=== PATIENT | female | born 1975 | race Caucasian/White ===

== ENCOUNTER 2017-10-08 21:51 | Emergency (ER) | payer OTHER ==
[~2017-10-08] VITALS: Ht 162.6 cm; Wt 81.3 kg
[~2017-10-08 21:51] MED LIST: HYDR-2768 PO
[2017-10-08 22:00] VITALS: BP 161/96; PULSE 101; RESP 16; TEMP 98; O2SAT 98
[2017-10-08] MEDS ORDERED: HYDR25TA5 PO (22:17)
[2017-10-08] MEDS ORDERED: OMEP20TA93 PO (22:17)
[2017-10-08] MEDS ORDERED: CEPH-460 PO (22:50)
--- NOTE | 2017-10-08 22:50 | PD ---
HPI Chief Complaint: Laceration/Skin Injury Time Seen by Provider: 22:44 Travel History International Travel<30 days: No Contact w/Intl Traveler<30days: No Traveled to known affect area: No History of Present Illness HPI Patient presents with complaints of laceration to the distal aspect of her left first finger. States she was shopping some trash into a trash can when she felt something sharp cut into her left first finger. Tetanus up-to-date. Denies . Occurred approximate 30 minutes prior to arrival. Pressure dressing was applied and bleeding is currently controlled. PFSH Past Medical History Cancer: No Cardiovascular Problems: No Diabetes: No Endocrine: No Gastrointestinal Disorders: Yes (GERD, ABD. PAIN/ BLOATING, N&V) GERD: Yes Genitourinary: No Hepatitis: No Hiatal Hernia: No Hypertension: Yes Immune Disorder: No Musculoskeletal: Yes (ARTHRITIS) Neurologic: No Psychiatric: No Reproductive: No Respiratory: No Thyroid Disease: No Tetanus Vaccination: < 5 Years Influenza Vaccination: No ?: Unknown Dilation and Curettage (D&C): Yes Past Surgical History AICD: No Cholecystectomy: Yes Gynecologic Surgery: Yes (D&C X4, LAPAROSCOPY) Joint Replacement: No Pacemaker: No Other Surgery: Yes Social History Alcohol Use: Yes (OCC) Tobacco Use: No (VAPES) Substance Use: No Allergies-Medications (Allergen,Severity, Reaction): Coded Allergies: codeine (Unverified Allergy, Severe, MIGRAINE, VOMITING, HIVES, 01/05/17) gluten (Unverified Adverse Reaction, Unknown, SWELLING FEET, 01/05/17) Reported Meds & Prescriptions Reported Meds & Active Scripts Active Reported Omeprazole 20 Mg Tab 20 Mg PO DAILY Hydrochlorothiazide 25 Mg Tab 25 Mg PO DAILY Review of Systems General / Constitutional: No: Fever Eyes: No: Visual changes HENT: No: Headaches Cardiovascular: No: Chest Pain or Discomfort Respiratory: No: Shortness of Breath Gastrointestinal: No: Abdominal Pain Genitourinary: No: Dysuria Musculoskeletal: No: Pain Skin: Positive Other (Finger laceration), No Rash Neurologic: No: Weakness Psychiatric: No: Depression Endocrine: No: Polydipsia Hematologic/Lymphatic: No: Easy Bruising Physical Exam Narrative GENERAL: Well-nourished, well-developed patient. SKIN: Focused skin assessment warm/dry. HEAD: Normocephalic. EYES: No scleral icterus. No injection or drainage. NECK: Supple, trachea midline. No JVD or lymphadenopathy. CARDIOVASCULAR: Regular rate and rhythm without murmurs, gallops, or rubs. RESPIRATORY: Breath sounds equal bilaterally. No accessory muscle use. GASTROINTESTINAL: Abdomen soft, non-tender, nondistended. MUSCULOSKELETAL: No cyanosis, or edema. BACK: Nontender without obvious deformity. No CVA tenderness. Examination of the left first finger distal aspect reveals a 1.5 cm laceration, there does not appear to be any tendon or bone involvement. Data Data Last Documented VS Vital Signs Date Time Temp Pulse Resp B/P (MAP) Pulse Ox O2 Delivery O2 Flow Rate FiO2 10/08/17 22:34 20 10/08/17 22:00 98.0 101 161/96 (117) 98 MDM Medical Decision Making Medical Screen Exam Complete: Yes Emergency Medical Condition: Yes Differential Diagnosis Laceration, tendon laceration, phalangeal fracture Narrative Course Assessment plan discussed with patient and friend at bedside. Since the laceration occurred in a trash can I think an antibiotic is appropriate. Procedures Procedure Narrative LACERATION LOCATION: Left distal first finger LENGTH: 1.5 cm NUMBER OF STITCHES/RUBENS: 4 interrupted REPAIR: The area of the laceration was prepped with Betadine and sterilely draped. The laceration was infiltrated with 1 cc lidocaine without epinephrine. The wound was copiously irrigated and explored without evidence of foreign body, tendon injury or neurovascular injury. The wound was closed using 5-0 Prolene. This was a single layer repair. A sterile dressing was applied. The patient was advised to keep the dressing clean and dry. Patient tolerated the procedure well. Diagnosis Primary Impression: Finger laceration Qualified Codes: S61.211A - Laceration without foreign body of left index finger without damage to nail, initial encounter Patient Instructions: General Instructions, Finger Laceration (ED) Departure Forms: Tests/Procedures Additional Instructions: Motrin or Tylenol for pain, encouraged general wound care, suture removal 7-10 days. Follow-up with PCP. Return to emerge from with any onset of new symptoms. Med/Other Pt SpecificInfo: Prescription(s) given Scripts Cephalexin (Keflex) 500 Mg Cap 500 MG PO Q12H for Infection for 7 Days, #14 CAP 0 Refills Prov: Ayden Tena MD 10/08/17 Disposition: 01 DISCHARGE HOME Condition: Good Ayden Tena MD October 08, 2017 22:50
== END 2017-10-08 22:59 | disposition home or self-care (01) ==
LOC: PHEFT 21:51
DX: S61.219A Laceration without foreign body of unspecified finger without damage to nail, initial encounter (principal); W26.9XXA Contact with unspecified sharp object(s), initial encounter; K21.9 Gastro-esophageal reflux disease without esophagitis; I10 Essential (primary) hypertension
CPT/HCPCS: 12001; 12004